=== PATIENT | male | born 1930 | race Caucasian/White ===

== ENCOUNTER 2021-04-17 17:20 | Inpatient (IN) | payer OTHER ==
[2021-04-17 20:09] LABS: BASO % 0.5 % (0-2.0); HEMATOCRIT 35.2 % (35.4-49); HEMOGLOBIN 11.7 GM/dL (11.7-16.9); LYMPH % 19.5 % (8-40); MCHC 33.3 g/dl (32.0-35.9); MEAN CELL VOLUME 87.2 fl (80-96); MEAN PLT VOLUME 6.9 fl (7.5-11.1); MONO % 8.8 % (3.8-10.2); NEUT % 71.2 % (42.8-82.8); PLATELET COUNT 222 10^3/uL (134-434); RBC 4.03 M/mm3 (4.00-5.60); RDW 18.9 % (11.9-15.9); WHITE BLOOD COUNT 6.7 K/mm3 (4.0-10.0)
[2021-04-17 20:16] LABS: INR 1.23 (0.83-1.09); PROTHROMBIN TIME (PATIENT) 15.2 SEC (9.7-13.0)
[2021-04-17 20:18] LABS: ACTIVATED PTT 25.5 SECONDS (25.2-36.5)
[2021-04-17 20:26] LABS: CHLORIDE 103 mmol/L (98-107); SODIUM 137 mmol/L (136-145)
[2021-04-17 20:29] LABS: ALBUMIN 2.9 g/dl (3.4-5.0); ANION GAP 8 MMOL/L (8-16); BLOOD UREA NITROGEN 21.4 mg/dL (7-18); CO2 26 mmol/L (21-32); GLUCOSE,RANDOM 133 mg/dL (74-106); MAGNESIUM 1.8 mg/dL (1.8-2.4)
[2021-04-17 20:32] LABS: CREATININE 0.8 mg/dL (0.55-1.3); SGOT/AST 156 U/L (15-37); SGPT/ALT 19 U/L (13-61)
[2021-04-17 20:33] LABS: TOT PROT 7.3 g/dl (6.4-8.2)
[2021-04-17 20:35] LABS: ALK PHOS 494 U/L (45-117)
[2021-04-17] MEDS ORDERED: HALOPERIDOL LACTATE 5 MG/ML IM ONE (22:32)
[2021-04-17] MEDS ORDERED: HALOPERIDOL LACTATE 5 MG/ML ONE (22:35)
[2021-04-17] MEDS ORDERED: MAG HYDROX/AL HYDROX/SIMETH 30 ML UNIT-DOSE CUP ONE (22:36)
[2021-04-17] MEDS ORDERED: DEXTROSE 5%-NORMAL SALINE 1,000 ML IV SCH (23:45)
[2021-04-18] MEDS ORDERED: MIDAZOLAM HCL 2 MG/2 ML SINGLE DOSE VIAL IVPUSH ONE (00:22)
[2021-04-18] MEDS ORDERED: MIDAZOLAM HCL 2 MG/2 ML SINGLE DOSE VIAL ONE (00:35)
[2021-04-18 05:06] VITALS: BMI 18.0
[2021-04-18] MEDS ORDERED: PATIENT'S OWN MEDICATION (NON-FORMULARY) (Acetaminophen [Tylenol] 325 MG Capsule) PO PRN (05:10)
[2021-04-18] MEDS ORDERED: SENNOSIDES 8.6MG TABLET (FP) PO SCH (05:15)
[2021-04-18] MEDS ORDERED: ACETAMINOPHEN 1000 MG/100 ML VIAL IVPB PRN (05:57)
[2021-04-18] MEDS ORDERED: DEXTROSE 5%-NORMAL SALINE 1,000 ML IV SCH (06:02)
[2021-04-18 08:26] LABS: BASO % 0.4 % (0-2.0); EOS % 0.3 % (0-4.5); HEMATOCRIT 35.5 % (35.4-49); HEMOGLOBIN 11.9 GM/dL (11.7-16.9); LYMPH % 38.8 % (8-40); MCH 29.4 pg (25.7-33.7); MCHC 33.4 g/dl (32.0-35.9); MEAN PLT VOLUME 7.5 fl (7.5-11.1); MONO % 7.5 % (3.8-10.2); PLATELET COUNT 210 10^3/uL (134-434); RBC 4.04 M/mm3 (4.00-5.60); RDW 19.2 % (11.9-15.9); WHITE BLOOD COUNT 7.6 K/mm3 (4.0-10.0)
[2021-04-18 08:49] LABS: ALBUMIN 2.8 g/dl (3.4-5.0); CALCIUM 8.9 mg/dL (8.5-10.1)
[2021-04-18 08:50] LABS: BLOOD UREA NITROGEN 20.3 mg/dL (7-18)
[2021-04-18 08:53] LABS: CREATININE 0.8 mg/dL (0.55-1.3)
[2021-04-18] MEDS ORDERED: PT OWN MED DRAWER 7, Y5N ONE ×2 (09:13→10:26)
[2021-04-18] MEDS: BACITRACIN 15 GM TUBE TOPICAL OINTMENT TP SCH (09:23)
[2021-04-18] MEDS: VITAMINS A AND D TOPICAL OINTMENT 60 GM TUBE TP SCH ×2 (09:23→21:44)
[2021-04-18] MEDS: ALLOPURINOL 100 MG TABLET (FP) PO SCH (09:23)
[2021-04-18] MEDS: CALCIUM 500MG/VIT-D 200 UNITS COMBO TABLET (FP) PO SCH (09:23)
[2021-04-18] MEDS: TAMSULOSIN HCL 0.4 MG CAP PO SCH (09:23)
[2021-04-18] MEDS: FUROSEMIDE 40 MG TABLET (FP) PO SCH (09:23)
[2021-04-18] MEDS: MULTIVITAMINS (DAILY MVI) TABLET (FP) PO SCH (09:23)
[2021-04-18] MEDS: VALSARTAN 40 MG TABLET PO SCH (10:29)
[2021-04-18] MEDS ORDERED: POLYETHYLENE GLYCOL (HEALTHYLAX) 3350 17 GM PACKET PO SCH ×2 (13:00→14:00)
[2021-04-18] MEDS: POLYETHYLENE GLYCOL (HEALTHYLAX) 3350 17 GM PACKET PO SCH (21:43)
[2021-04-19] MEDS: POLYETHYLENE GLYCOL (HEALTHYLAX) 3350 17 GM PACKET PO SCH ×3 (06:15→22:16)
[2021-04-19] MEDS: TAMSULOSIN HCL 0.4 MG CAP PO SCH (08:40)
[2021-04-19 09:53] LABS: INR 1.18 (0.83-1.09); PROTHROMBIN TIME (PATIENT) 14.5 SEC (9.7-13.0)
[2021-04-19] MEDS: VALSARTAN 40 MG TABLET PO SCH (10:37)
[2021-04-19] MEDS ORDERED: PT OWN MED DRAWER 7, Y5N ONE (10:44)
[2021-04-19] MEDS: FUROSEMIDE 40 MG TABLET (FP) PO SCH (10:47)
[2021-04-19] MEDS: ALLOPURINOL 100 MG TABLET (FP) PO SCH (10:47)
[2021-04-19] MEDS: VITAMINS A AND D TOPICAL OINTMENT 60 GM TUBE TP SCH ×2 (10:47→23:01)
[2021-04-19] MEDS: MULTIVITAMINS (DAILY MVI) TABLET (FP) PO SCH (10:47)
[2021-04-19] MEDS: BACITRACIN 15 GM TUBE TOPICAL OINTMENT TP SCH (10:47)
[2021-04-19] MEDS: CALCIUM 500MG/VIT-D 200 UNITS COMBO TABLET (FP) PO SCH (10:47)
[2021-04-19] MEDS ORDERED: PROPOFOL 20 ML ONE ×2 (17:02)
[2021-04-19] MEDS ORDERED: SUCCINYLCHOLINE CHLORIDE 200 MG/10 ML SYRINGE ONE (17:02)
[2021-04-19] MEDS ORDERED: BUPIVACAINE HCL/PF 0.5% (5MG/ML) 10 ML VIAL ONE (17:05)
[2021-04-19] MEDS ORDERED: MIDAZOLAM HCL 2 MG/2 ML SINGLE DOSE VIAL ONE ×2 (18:07→19:17)
[2021-04-19] MEDS ORDERED: TRANEXAMIC ACID 1000 MG/10 ML VIAL IVPB ONE (18:15)
[2021-04-19] MEDS ORDERED: VANCOMYCIN 1,000 MG VIAL (RESTRICTED TO ID ONLY) IVPB ONE (18:30)
[2021-04-19] MEDS ORDERED: GENTAMICIN SO4 80 MG/2 ML VIAL ONE (18:31)
[2021-04-19] MEDS ORDERED: GENTAMICIN SO4 80 MG/2 ML VIAL IVPB ONE (18:40)
[2021-04-19] MEDS ORDERED: ONDANSETRON 4 MG/2 ML VIAL IVPUSH PRN (20:29)
[2021-04-19] MEDS ORDERED: LACTATED RINGERS SOLUTION 1,000 ML IV SCH (20:30)
[2021-04-19] MEDS ORDERED: oxyCODONE HCL 5 MG TABLET PO PRN (21:00)
[2021-04-19] MEDS ORDERED: LACTATED RINGERS SOLUTION 1,000 ML/1,000 ML INFUS.BAG IV SCH (21:00)
[2021-04-19] MEDS ORDERED: ACETAMINOPHEN 325 MG TABLET (FP) PO PRN (21:00)
[2021-04-19] MEDS: LACTATED RINGERS SOLUTION 1,000 ML IV SCH (21:30)
[2021-04-19] MEDS: DOCUSATE SODIUM 100 MG CAPSULE (FP) PO SCH (22:16)
[2021-04-19] MEDS: ACETAMINOPHEN 1000 MG/100 ML VIAL IVPB PRN (23:11)
[2021-04-20] MEDS: POLYETHYLENE GLYCOL (HEALTHYLAX) 3350 17 GM PACKET PO SCH ×3 (06:09→21:34)
[2021-04-20] MEDS: DOCUSATE SODIUM 100 MG CAPSULE (FP) PO SCH ×3 (06:09→21:34)
[2021-04-20] MEDS ORDERED: VANCOMYCIN 1 GM in D5W (PRE-DOCKED) 1,000 MG/250 ML IVPB ONE (07:30)
[2021-04-20 08:10] LABS: BASO % 0.8 % (0-2.0); EOS % 1.1 % (0-4.5); HEMATOCRIT 31.8 % (35.4-49); HEMOGLOBIN 10.6 GM/dL (11.7-16.9); LYMPH % 35.2 % (8-40); MCH 29.3 pg (25.7-33.7); MCHC 33.3 g/dl (32.0-35.9); MEAN PLT VOLUME 7.7 fl (7.5-11.1); MONO % 9.7 % (3.8-10.2); NEUT % 53.2 % (42.8-82.8); PLATELET COUNT 206 10^3/uL (134-434); RBC 3.62 M/mm3 (4.00-5.60); RDW 19.7 % (11.9-15.9)
[2021-04-20 08:11] LABS: CALCIUM 7.7 mg/dL (8.5-10.1)
[2021-04-20 08:12] LABS: BLOOD UREA NITROGEN 17.1 mg/dL (7-18)
[2021-04-20] MEDS ORDERED: PT OWN MED DRAWER 7, Y5N ONE (08:14)
[2021-04-20 08:15] LABS: CREATININE 0.6 mg/dL (0.55-1.3)
[2021-04-20] MEDS: TAMSULOSIN HCL 0.4 MG CAP PO SCH (08:16)
[2021-04-20] MEDS: ALLOPURINOL 100 MG TABLET (FP) PO SCH (09:19)
[2021-04-20] MEDS: MULTIVITAMINS (DAILY MVI) TABLET (FP) PO SCH (09:19)
[2021-04-20] MEDS: VALSARTAN 40 MG TABLET PO SCH (09:19)
[2021-04-20] MEDS: FUROSEMIDE 40 MG TABLET (FP) PO SCH (09:19)
[2021-04-20] MEDS: CALCIUM 500MG/VIT-D 200 UNITS COMBO TABLET (FP) PO SCH (09:19)
[2021-04-20] MEDS: BACITRACIN 15 GM TUBE TOPICAL OINTMENT TP SCH (10:55)
[2021-04-20] MEDS: VITAMINS A AND D TOPICAL OINTMENT 60 GM TUBE TP SCH ×2 (10:55→21:35)
[2021-04-20 17:07] LABS: FREE KAPPA,SERUM 53.1 mg/L (3.3-19.4)
[2021-04-20] MEDS: ACETAMINOPHEN 1000 MG/100 ML VIAL IVPB PRN (20:12)
[2021-04-20] MEDS: LACTATED RINGERS SOLUTION 1,000 ML IV SCH (20:12)
[2021-04-21] MEDS: POLYETHYLENE GLYCOL (HEALTHYLAX) 3350 17 GM PACKET PO SCH ×3 (06:25→21:18)
[2021-04-21] MEDS: DOCUSATE SODIUM 100 MG CAPSULE (FP) PO SCH ×3 (06:25→21:18)
[2021-04-21] MEDS: ACETAMINOPHEN 1000 MG/100 ML VIAL IVPB PRN (06:26)
[2021-04-21] MEDS: TAMSULOSIN HCL 0.4 MG CAP PO SCH (08:53)
[2021-04-21] MEDS: BACITRACIN 15 GM TUBE TOPICAL OINTMENT TP SCH (09:53)
[2021-04-21] MEDS: FUROSEMIDE 40 MG TABLET (FP) PO SCH (09:53)
[2021-04-21] MEDS: MULTIVITAMINS (DAILY MVI) TABLET (FP) PO SCH (09:53)
[2021-04-21] MEDS: ALLOPURINOL 100 MG TABLET (FP) PO SCH (09:53)
[2021-04-21] MEDS: CALCIUM 500MG/VIT-D 200 UNITS COMBO TABLET (FP) PO SCH (09:53)
[2021-04-21 10:29] LABS: BASO % 0.4 % (0-2.0); EOS % 0.9 % (0-4.5); HEMATOCRIT 30.5 % (35.4-49); HEMOGLOBIN 10.2 GM/dL (11.7-16.9); MCH 29.5 pg (25.7-33.7); MCHC 33.3 g/dl (32.0-35.9); MEAN CELL VOLUME 88.6 fl (80-96); MEAN PLT VOLUME 7.5 fl (7.5-11.1); MONO % 10.6 % (3.8-10.2); NEUT % 61.1 % (42.8-82.8); PLATELET COUNT 251 10^3/uL (134-434); RBC 3.44 M/mm3 (4.00-5.60); RDW 19.5 % (11.9-15.9); WHITE BLOOD COUNT 6.8 K/mm3 (4.0-10.0)
[2021-04-21] MEDS: VALSARTAN 40 MG TABLET PO SCH (10:40)
[2021-04-21] MEDS: VITAMINS A AND D TOPICAL OINTMENT 60 GM TUBE TP SCH ×2 (10:41→21:18)
[2021-04-21 10:48] LABS: BLOOD UREA NITROGEN 18.6 mg/dL (7-18)
[2021-04-21 10:52] LABS: CREATININE 0.8 mg/dL (0.55-1.3)
[2021-04-21 10:53] LABS: BILIRUBIN,TOTAL 1.2 mg/dL (0.2-1)
[2021-04-21 10:56] LABS: ALBUMIN 2.2 g/dl (3.4-5.0)
[2021-04-21 15:17] VITALS: PULSE 80
[2021-04-21] MEDS: LACTATED RINGERS SOLUTION 1,000 ML IV SCH (19:32)
[2021-04-21] MEDS: APIXABAN 2.5 MG TABLET PO SCH ×2 (21:18→21:21)
[2021-04-21 21:39] VITALS: BP 111/63; TEMP 98.8
[2021-04-24] MEDS ORDERED: POLYETHYLENE GLYCOL (HEALTHYLAX) 3350 17 GM PACKET PO SCH ×3 (10:00)
== END 2021-04-21 10:20 | DRG 522 ==
LOC: JER 17:20 → JERBED 21:18 → J6S 04-18 03:54
PROVIDERS: ADMIT Internal Medicine; ATTEND Internal Medicine
PROC: 0SRR0JZ Replacement of Right Hip Joint, Femoral Surface with Synthetic Substitute, Open Approach (ICD-10-PCS; principal; 2021-04-19 17:30)
DX: S72.011A Unspecified intracapsular fracture of right femur, initial encounter for closed fracture (principal); F03.91 Unspecified dementia, unspecified severity, with behavioral disturbance; C79.9 Secondary malignant neoplasm of unspecified site; K62.6 Ulcer of anus and rectum; N40.0 Benign prostatic hyperplasia without lower urinary tract symptoms; M85.80 Other specified disorders of bone density and structure, unspecified site; I48.91 Unspecified atrial fibrillation; L85.3 Xerosis cutis; I11.0 Hypertensive heart disease with heart failure; I50.9 Heart failure, unspecified; R13.10 Dysphagia, unspecified; K59.00 Constipation, unspecified; S81.812A Laceration without foreign body, left lower leg, initial encounter; W18.30XA Fall on same level, unspecified, initial encounter; Y92.098 Other place in other non-institutional residence as the place of occurrence of the external cause
CPT/HCPCS: 36415; 70450-TC; 71045-TC-FY; 72125-TC; 72192-TC; 73502-TC-RT-FY; 73523-TC-FY; 80048; 80053; 82784; 83615; 83735; 83883; 84153; 84155; 84165; 84484; 85025; 85384; 85610; 85730; 86850; 86900; 86901; 87081; 88304-TC; 88305-TC; 88311-TC; 93005; 93010; 94760; 97116-GP; 97161-GP; 99285-25; C9803; J0131; U0003; U0005

== ENCOUNTER 2021-10-10 22:33 | Inpatient (IN) | payer OTHER ==
[2021-10-10 23:58] LABS: BASO % 0.2 % (0-2.0); LYMPH % 15.6 % (8-40); MCH 29.7 pg (25.7-33.7); MCHC 33.3 g/dl (32.0-35.9); MEAN CELL VOLUME 89.1 fl (80-96); MONO % 11.4 % (3.8-10.2); NEUT % 72.8 % (42.8-82.8); PLATELET COUNT 305 10^3/uL (134-434); RBC 3.71 M/mm3 (4.00-5.60); RDW 19.7 % (11.9-15.9); WHITE BLOOD COUNT 6.1 K/mm3 (4.0-10.0)
[2021-10-11 00:07] LABS: INR 1.89 (0.83-1.09); PROTHROMBIN TIME (PATIENT) 21.9 SEC (9.7-13.0)
[2021-10-11 00:09] LABS: ACTIVATED PTT 29.8 SECONDS (25.2-36.5)
[2021-10-11 00:22] LABS: CHLORIDE 107 mmol/L (98-107); SODIUM 140 mmol/L (136-145)
[2021-10-11 00:24] LABS: ANION GAP 8 MMOL/L (8-16); BLOOD UREA NITROGEN 30.7 mg/dL (7-18); CALCIUM 8.3 mg/dL (8.5-10.1); CO2 25 mmol/L (21-32); GLUCOSE,RANDOM 165 mg/dL (74-106); MAGNESIUM 2.2 mg/dL (1.8-2.4)
[2021-10-11 00:25] LABS: ALBUMIN 2.6 g/dl (3.4-5.0)
[2021-10-11 00:27] LABS: CHOLESTEROL 164 mg/dL (50-200); CREATININE 1.1 mg/dL (0.55-1.3); SGOT/AST 40 U/L (15-37); SGPT/ALT 13 U/L (13-61)
[2021-10-11 00:28] LABS: LDL CHOLESTEROL (ONLY SJRH) 99 mg/dL (5-100); TRIGLYCERIDES 109 mg/dL (0-150)
[2021-10-11 00:29] LABS: BILIRUBIN,TOTAL 0.5 mg/dL (0.2-1); TOT PROT 6.6 g/dl (6.4-8.2)
[2021-10-11 00:30] LABS: ALK PHOS 348 U/L (45-117); HDL CHOLESTEROL 38 mg/dL (40-60)
[2021-10-11] MEDS ORDERED: ASPIRIN 81 MG CHEWABLE TABLETS PO ONE (01:46)
[2021-10-11] MEDS ORDERED: ASPIRIN 81 MG CHEWABLE TABLETS ONE (01:50)
[2021-10-11] MEDS ORDERED: APIXABAN 5 MG TABLET PO SCH (02:00)
[2021-10-11 05:49] VITALS: BMI 16.6
[2021-10-11] MEDS ORDERED: SENNOSIDES 8.6MG TABLET (FP) PO SCH (07:00)
[2021-10-11 07:23] LABS: CHLORIDE 108 mmol/L (98-107); SODIUM 142 mmol/L (136-145)
[2021-10-11 07:26] LABS: ALBUMIN 2.4 g/dl (3.4-5.0); ANION GAP 8 MMOL/L (8-16); BLOOD UREA NITROGEN 31.4 mg/dL (7-18); CO2 26 mmol/L (21-32); GLUCOSE,RANDOM 127 mg/dL (74-106)
[2021-10-11 07:28] LABS: SGPT/ALT 14 U/L (13-61)
[2021-10-11 07:29] LABS: CHOLESTEROL 151 mg/dL (50-200); CREATININE 0.9 mg/dL (0.55-1.3); SGOT/AST 33 U/L (15-37)
[2021-10-11 07:30] LABS: BILIRUBIN,TOTAL 0.5 mg/dL (0.2-1); LDL CHOLESTEROL (ONLY SJRH) 94 mg/dL (5-100); TRIGLYCERIDES 120 mg/dL (0-150)
[2021-10-11 07:31] LABS: HDL CHOLESTEROL 35 mg/dL (40-60)
[2021-10-11 07:39] LABS: ALK PHOS 318 U/L (45-117)
[2021-10-11 07:54] LABS: BASO % 0.4 % (0-2.0); EOS % 0.2 % (0-4.5); HEMATOCRIT 30.7 % (35.4-49); HEMOGLOBIN 10.1 GM/dL (11.7-16.9); LYMPH % 34.7 % (8-40); MCH 29.6 pg (25.7-33.7); MCHC 33.1 g/dl (32.0-35.9); MEAN CELL VOLUME 89.4 fl (80-96); MEAN PLT VOLUME 7.5 fl (7.5-11.1); MONO % 9.9 % (3.8-10.2); NEUT % 54.8 % (42.8-82.8); PLATELET COUNT 300 10^3/uL (134-434); RBC 3.43 M/mm3 (4.00-5.60); RDW 20.1 % (11.9-15.9); WHITE BLOOD COUNT 5.3 K/mm3 (4.0-10.0)
[2021-10-11] MEDS: TAMSULOSIN HCL 0.4 MG CAP PO SCH (08:20)
[2021-10-11] MEDS: POLYETHYLENE GLYCOL (HEALTHYLAX) 3350 17 GM PACKET PO SCH ×2 (09:53→21:51)
[2021-10-11] MEDS: ASCORBIC ACID 500 MG TABLET (FP) PO SCH (09:54)
[2021-10-11] MEDS: FUROSEMIDE 20 MG TABLET (FP) PO SCH (09:54)
[2021-10-11] MEDS: APIXABAN 2.5 MG TABLET PO SCH ×2 (09:54→21:51)
[2021-10-11] MEDS: ALLOPURINOL 100 MG TABLET (FP) PO SCH (09:54)
[2021-10-11] MEDS: CALCIUM 500MG/VIT-D 200 UNITS COMBO TABLET (FP) PO SCH (10:40)
[2021-10-11] MEDS ORDERED: ATORVASTATIN CA 20 MG TABLET (FP) PO SCH (22:00)
[2021-10-12 06:30] VITALS: TEMP 98
[2021-10-12] MEDS: TAMSULOSIN HCL 0.4 MG CAP PO SCH ×2 (08:53→08:55)
[2021-10-12] MEDS: ASCORBIC ACID 500 MG TABLET (FP) PO SCH (09:52)
[2021-10-12] MEDS: FUROSEMIDE 20 MG TABLET (FP) PO SCH (09:52)
[2021-10-12] MEDS: ALLOPURINOL 100 MG TABLET (FP) PO SCH (09:52)
[2021-10-12] MEDS: APIXABAN 2.5 MG TABLET PO SCH (09:52)
[2021-10-12] MEDS: POLYETHYLENE GLYCOL (HEALTHYLAX) 3350 17 GM PACKET PO SCH (09:52)
[2021-10-12] MEDS: CALCIUM 500MG/VIT-D 200 UNITS COMBO TABLET (FP) PO SCH (10:02)
[2021-10-12 14:04] VITALS: BP 115/65; PULSE 57
[2021-10-12] MEDS ORDERED: AMINO ACIDS/PROTEIN HYDROLYS 30 ML LIQUID.PKT PO SCH (17:30)
== END 2021-10-12 17:30 | DRG 312 ==
LOC: JER 22:33 → JERBED 10-11 01:46 → J2W 10-11 04:11
PROVIDERS: ADMIT Internal Medicine; ATTEND Internal Medicine
DX: R55 Syncope and collapse (principal); I50.32 Chronic diastolic (congestive) heart failure; C79.51 Secondary malignant neoplasm of bone; I11.0 Hypertensive heart disease with heart failure; F03.90 Unspecified dementia, unspecified severity, without behavioral disturbance, psychotic disturbance, mood disturbance, and anxiety; I48.91 Unspecified atrial fibrillation; M10.9 Gout, unspecified; C61 Malignant neoplasm of prostate; N40.0 Benign prostatic hyperplasia without lower urinary tract symptoms; I10 Essential (primary) hypertension; E55.9 Vitamin D deficiency, unspecified; K59.00 Constipation, unspecified; R26.81 Unsteadiness on feet; R29.6 Repeated falls; I35.0 Nonrheumatic aortic (valve) stenosis; W18.30XA Fall on same level, unspecified, initial encounter; Y92.098 Other place in other non-institutional residence as the place of occurrence of the external cause; Z20.822 Contact with and (suspected) exposure to COVID-19
CPT/HCPCS: 36415; 70450-TC; 71045-TC-FY; 72125-TC; 80053; 80061; 83036; 83735; 83880; 84443; 84484; 85025; 85610; 85730; 93005; 93010; 93306-TC; 99285-25; C9803-CS; U0003; U0005